=== PATIENT | female | born 1985 | race Caucasian/White ===

== ENCOUNTER 2020-12-12 14:15 | Outpatient (CLI) | payer MEDICAID, SELFPAY ==
--- NOTE | 2020-12-12 | MR_ITS ---
WS: [id number] MRI BRAIN WITHOUT CONTRAST HISTORY: WORSENING HEADACHES COMPARISON: None available. TECHNIQUE: Diffusion imaging, multiplanar T1, T2 and FLAIR imaging obtained. No evidence for acute infarct or hemorrhage. Dior-white matter differentiation is normal. There are f ew nonspecific T2 and FLAIR signal hyperintensities. No prior infarcts. No remote or acute infarcts are volume loss. Ventricles and extra-axial spaces are normal. No inferior displacement of cerebellar tonsils. The sella turcica and pituitary gland are unremarkabl e. Posterior fossa is also unremarkable. Dural venous sinuses and [place] demonstrate no abnormality on this unenhanced studies. Paranasal sinuses: Clear. Mastoid air cells: Normal. Calvarium and scalp: Intact. MR/MR head wo con* [id number] IMPRESSION: 1. Unremarkable MRI brain. 2. Negative sinuses.
== END 2020-12-12 14:16 | disposition home or self-care (01) ==
LOC: RADWPI 14:24
PROVIDERS: Visit Provider Nurse Practitioner Family
DX: R51.9 Headache, unspecified (principal)
CPT/HCPCS: 70551

== ENCOUNTER → 2021-12-23 15:50 | Outpatient (BNVA) | payer MEDICAID, SELFPAY | PROVIDERS: Visit Provider Surgery | DX: Z20.822 Contact with and (suspected) exposure to COVID-19 (principal) | CPT/HCPCS: 87635 ==

== ENCOUNTER 2021-12-30 10:01 | Day surgery (SDC) | payer MEDICAID, SELFPAY ==
[2021-12-28 12:45] VITALS: BMI 29.2
[2021-12-30] VITALS (12 sets, daily range): BP systolic 121–138; BP diastolic 60–91; PULSE 69–93; RESP 14–18; TEMP 36.1–36.8; O2SAT 96–100
[2021-12-30] MEDS: sodium chloride 0.9% 1,000 ML 30 ML IV (10:40)
[2021-12-30] MEDS: acetaminophen 1,000 MG/100 ML PIGGYBACK 400 MG IV (10:45)
[2021-12-30 10:54] LABS: Basophils # 0.1 10^3/uL (0.0-0.1); Basophils % 0.7 %; Eosinophils # 0.3 10^3/uL (0.0-0.8); Eosinophils % 2.7 %; Hematocrit 41.2 % (37.0-47.0); Lymphocytes # 2.1 10^3/uL (0.8-4.8); Lymphocytes % 19.6 %; Mean Corpuscular Hemoglobin 29.9 pg (28.0-34.0); Mean Platelet Volume 9.4 fL (7.4-10.4); Monocytes # 0.5 10^3/uL (0.2-0.9); Monocytes % 5.1 %; Neutrophils # 7.57 10^3/uL (1.8-7.7); Neutrophils % 71.5 %; Nucleated Red Blood Cells % 0 %; Platelet Count 363 10^3/cmm (130-400); Red Blood Count 4.68 10^6/uL (4.1-5.3); Red Cell Distribution Width 12.1 % (12.1-15.1); White Blood Count 10.6 10^3/uL (4.0-10.0)
[2021-12-30 11:02] LABS: OR HCG Qualitative Urine Negative (Negative)
--- NOTE | 2021-12-30 11:11 | ANES.PREANE2 ---
Pre-Anesthetic Assessment Height/Weight: Height 1.57 m Weight 72.575 kg Temp Pulse Resp BP Pulse Ox 98.2 F 70 14 133/60 99 12/30/21 10:18 12/30/21 10:18 12/30/21 10:18 12/30/21 10:18 12/30/21 10:18 Preop Diagnosis: Right upper quadrant abdominal pain Operation Date: 12/30/21 12:00 Proposed Procedures p Laparoscopic Cholecystectomy 68501/[id number](Not Applicable) - Dao Hunter MD Familial anesthetic complications: None Was Beta Darin taken within 24 hours: N/A Was Clonidine taken within 24 hours: N/A Last intake: Intake Last Liquid Date 12/29/21 Last Liquid Time 19:00 Last Solid Date 12/29/21 Last Solid Time 19:00 Social No alcohol and No tobacco Exam alert, oriented x 3, clear to auscultation bilaterally and regular rate & rhythm Airway Submandibular: within normal limits Cervical ROM: within normal limits Mallampati: Class I Dentition: full History/ROS No significant complaints Pulmonary None reported CV/HEM None reported None reported Hepatic None reported GI Symptomatic gall disease Metabolic None reported Musc/skel None reported Neuropsych None reported Anesthetic Plan ASA status: 2 Anesthesia: Anesthesia Evaluation and General Other: We discussed risk and benefits of general anesthesia including PONV, sore throat (sometimes severe), corneal abrasion, positioning and peripheral nerve injuries, life threatening allergic reaction, post operative ICU admission requiring prolonged intubation, stroke, heart attack, , and rare incidences of recall. Patient consents to proceed with general anesthesia. Risk of > 500 ml blood loss (7ml/kg in children): No Medications/Allergies Home Medications Medication Instructions Recorded Confirmed Last Taken Type pantoprazole 40 mg tablet,delayed 40 mg PO DAILY 12/14/21 12/30/21 12/29/21 History release (Protonix) topiramate 100 mg tablet (Topamax) 100 mg PO DAILY 12/14/21 12/30/21 12/29/21 History acetaminophen 325 mg tablet 1,000 mg PO QID PRN 12/28/21 12/30/21 2 Weeks Ago History (Tylenol) ~12/16/21 Allergies Allergy/AdvReac Type Severity Reaction Status Date / Time chlorhexidine Allergy Severe ALGY-Swell Verified 12/30/21 10:14 Lip/Tongue/Throat Current Medications Generic Name Dose Route Start Last Admin Trade Name Bin PRN Reason Stop Dose Admin Sodium Chloride 1,000 mls @ 30 mls/hr 12/30/21 10:15 12/30/21 10:40 Sodium Chloride 0.9% IV 12/31/21 10:14 30 mls/hr .Q24H MISSAEL Administration PFSH Anesthesia Family History Family/Other , Mother's side) Cancer Social History Smoking and tobacco status: never smoked Second hand smoke exposure: No Smoking risk assessment/counseling performed?: Yes Alcohol intake: never Marital status: Legally Female Reproductive History Date of last menstrual period: 12/28/21 Data Anesthesia : 12/30/21 10:35 12/30/21 10:35 Short CBC 12/30/21 Range/Units 10:35 WBC 10.6 H (4.0-10.0) 10^3/uL Hgb 14.0 (11.5-15.3) g/dL Hct 41.2 (37.0-47.0) % MCV 88.0 (81-99) fl Plt Count 363 (130-400) 10^3/cmm Neut % (Auto) 71.5 % Neut # (Auto) 7.57 (1.8-7.7) 10^3/uL Cardiac Studies: No Data to Display
[2021-12-30 11:17] LABS: Alanine Aminotransferase 13 U/L (0-33); Albumin Level 4.5 g/dL (3.5-5.2); Alkaline Phosphatase 69 IU/L (35-105); Anion Gap 12.8 (5-19); Aspartate Amino Transferase 14 U/L (0-32); Blood Urea Nitrogen 9 mg/dL (6-20); Calcium 8.9 mg/dL (8.5-10.5); Carbon Dioxide 25 mmol/L (22-29); Chloride 103 mmol/L (98-107); Globulin 2.3 g/dL (1.3-4.6); Glomerular Filtration Rate 95.8 mL/min (90-130); Glucose 89 mg/dL (65-115); Osmolality Calculated 282 mOsm/kg (285-295); Potassium 3.8 mmol/L (3.5-5.1); Sodium 137 mmol/L (136-145); Total Bilirubin 0.4 mg/dL (0.15-1.2); Total Protein 6.8 g/dL (6.6-8.7)
--- NOTE | 2021-12-30 11:40 | W.PM.OPSUD ---
Surgery/Procedure H&P Update DATE OF PROCEDURE: December 30, 2021 DATE H&P PERFORMED: 12/14/21 H&P UPDATE INFORMATION: I have reviewed H&P completed within last 30 days, I have examined patient prior to procedure and No changes to prior documentation PREOP DIAGNOSIS: Right upper quadrant abdominal pain PRIMARY INDICATION FOR PROCEDURE: THE SAME PLANNED PROCEDURE: Operation Date: 12/30/21 12:00 Proposed Procedures p Laparoscopic Cholecystectomy 12176/k82.9(Not Applicable) - Dao Hunter MD
[2021-12-30] MEDS: ampicillin-sulbactam 3 GM in sodium chloride 0.9% (plus) 50 ML IV (12:15)
[2021-12-30] MEDS: lidocaine 2% INJ 20 mL INJECTION (12:45)
--- NOTE | 2021-12-30 13:23 | PM.OP ---
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 Time-out was done verifying the patient's name/date of /planned procedure and destination after the procedure, all were in agreement. SCDs confirmed to be functioning, preoperative antibiotics administered per protocol, and beta brenton protocol was confirmed. Patient was appropriately secured to the table, footboard was applied to the OR table, before prep and drape anesthesia was asked to tilt the table back and forth to make sure that the patient is appropriately secured and she was. Prep and drape of the abdomen was done under the usual sterile technique, followed by that supraumbilical skin incision,skin incision was done by a 15 blade knife, and stay sutures were applied to the fascia and Minor trocar technique was used to enter the abdominal without injuring any abdominal viscera, started by low flow gas insufflation followed by a high flow, started with a 10 mm laparoscope and under direct vision there was no evidence of any injuries, the scope then switched to a 30? ,10 millimeter scope and under direct visualization 5 millimeter trocar was inserted in the epigastric region followed by two 5 mm trocars were inserted in the right upper quadrant that was done after injection of local lidocaine 2% at all incision sites. Gallbladder showed chronic cholecystitis and Fatty Liver Patient was then positioned in the head up and tilted to the left. Ratcheted forceps were introduced into the lateral most 5mm port and was applied unto the fundus of the gallbladder cephalad and using Bullet forceps the infundibulum of the gallbladder was retracted laterally. Using [place] forceps then L-hook cautery to dissect the peritoneum overlying the Calot's triangle which was then opened medially and laterally until the cystic duct and the cystic artery were skeletonized. Dissection was carried along the body of the gallbladder and after ensuring critical view of safety was identfied. Cystic duct and cystic artery where seen connected to the gallbladder. Clips were applied on the cystic duct towards the common bile duct 1 towards the gallbladder then divided is in sharp scissors, 2 clips were then applied onto the cystic artery and 1 towards the gallbladder and divided by sharp scissors. Dissection was then carried along of the gallbladder from the gallbladder fossa using cautery as well as sharp dissection with heat energy. The gallbladder then was dissected out from the gallbladder fossa totally , cholecystectomy was then achieved and was placed in an Endo Catch bag and then retrieved from the Minor trocar site under direct visualization using a 5 mm 30? scope through the epigastric trocar, specimen was then passed to the circulating nurse to go for permanent pathology,irrigation and hemostasis was done to the gallbladder fossa after hemostasis was secured and finalized by the pieces of Surgicel placed at the gallbladder fossa final survey laparoscopy was done that showed no injuries or bleeding Suction irrigation was obtained. The supraumbilical fascial defect was then closed using interrupted number one PDS sutures using a fascial closure device ;Herbert Quintero under direct visualization following that Gas was allowed to deflate,Trocars were then taken out under direct vision there was no evidence of bleeding. Specimen was passed to the circulating nurse for permanent pathology. No drains were placed and the supraumbilical incision as well as all trocar sites were closed by 3/0 Vicryl followed by 4-0 Monocryl to approximate the skin edges of the incisions , dressing was applied in the form of surical glue and the patient patient got extubated and was taken to recovery area in a stable condition. Count of sponges,needles and instruments were completed at the end of the procedure I was present for the whole entire procedure.
[2021-12-30] MEDS: diphenhydrAMINE 50 mg/mL SDV 1mL 25 MG IVP (14:26)
[2021-12-30] MEDS: metoclopramide 5 mg/mL SDV 2 mL 10 MG IVP (14:44)
[2021-12-30] MEDS: dexamethasone 4 mg/mL INJ IVP (15:34)
[2021-12-30] MEDS: scopolamine 1.5 Patch 1 PATCH TRANSDERMA (15:34)
[2021-12-30] MEDS: promethazine 25 mg/mL SDV 1 mL IM (15:57)
--- NOTE | 2021-12-30 16:12 | ANE.PACU2 ---
Inpatient post-anesthesia follow up: Airway intact: Yes Vital signs: Temperature 97.0 F Pulse Rate 78 Respiratory Rate 16 Blood Pressure 136/72 Pulse Oximetry 99 Oxygen Delivery Me thod Room Air Oxygen Flow Rate 6 Fraction of Inspir ed Oxygen Hydration adequate: Yes Nausea and vomiting: Yes Pain level: 4 Mental status: Baseline Additional Comments: PONV after dexamethasone and ondansetron intraop. Post op received diphenhydramine, dexamethasone, promethazine IM, metoclopramide, and scopalamine
== END 2021-12-30 16:25 | disposition home or self-care (01) ==
PROVIDERS: Anesthesiology; PCP Nurse Practitioner Family; Visit Provider Surgery
PROC: 0FT44ZZ Resection of Gallbladder, Percutaneous Endoscopic Approach (ICD-10-PCS; CPT 47562; principal; 2021-12-30 12:00)
DX: K81.1 Chronic cholecystitis (principal)
CPT/HCPCS: 47562; 80053; 84703; 85025; 88304; J0295; J1100; J1170; J1200; J2405; J2550; J2704; J2710; J2765; J3010; J3490; J7030

== ENCOUNTER → 2022-01-11 14:59 | Outpatient (BNVA) | payer MEDICAID, SELFPAY | PROVIDERS: PCP Nurse Practitioner Family; Visit Provider Surgery | DX: Z98.890 Other specified postprocedural states (principal); Z90.49 Acquired absence of other specified parts of digestive tract ==

== ENCOUNTER → 2023-02-23 11:05 | Outpatient (BNVA) | payer BC, MEDICAID, SELFPAY | PROVIDERS: PCP Nurse Practitioner Family; Visit Provider Internal Medicine | DX: L50.9 Urticaria, unspecified (principal); R76.8 Other specified abnormal immunological findings in serum; R21 Rash and other nonspecific skin eruption; Z90.49 Acquired absence of other specified parts of digestive tract | CPT/HCPCS: 36415; 80053; 81003; 82784; 83516; 83735; 84443; 84550; 85025; 85651; 86140; 86160; 86162; 86200; 86235; 86255; 86376; 86431; 86618; 86666; 86704; 86757; 86803; 87340 ==

== ENCOUNTER → 2023-03-25 11:00 | Outpatient (BNVA) | payer BC, SELFPAY | PROVIDERS: PCP Nurse Practitioner Family; Referring Provider Internal Medicine; Visit Provider Nurse Practitioner Family | DX: L71.8 Other rosacea (principal); L81.4 Other melanin hyperpigmentation; D22.5 Melanocytic nevi of trunk; Z71.89 Other specified counseling | CPT/HCPCS: 99204 ==

== ENCOUNTER 2025-01-25 08:16 | Outpatient (CLI) | payer OTHER, SELFPAY ==
--- NOTE | 2025-01-25 08:30 | CT_ITS ---
WS: [id number] CT ABDOMEN AND PELVIS NONCONTRAST HISTORY: ABDOMINAL PAIN TECHNIQUE: Imaging performed through the abdomen and pelvis. Coronal and sagittal reformats are submitted. All CT scans at [facility] use at least one of these dose optimization techniques: automated exposure control; mA and/or kV adjustment per patient size (includes targeted exams where dose is matched to clinical indication); or iterative reconstruction. DLP: 383.88 mGy.cm COMPARISON: None available. Lower thorax: Lung bases are clear. Visualized heart is normal. Small hiatal hernia. Liver: Normal size liver. No mass or bile duct dilatation. Gallbladder: Prior cholecystectomy. Pancreas: Normal size and attenuation. Normal pancreatic duct. No pancreatitis or mass. Spleen: Normal. Adrenal glands: Normal RIGHT adrenal gland. There is a small 12 mm nodule in the LEFT upper abdomen closely associated with the stomach and the LEFT adrenal gland. The exact etiology is difficult to determine. Right kidney: Normal size kidney with no mass or hydronephrosis. Left kidney: Normal size kidney with no mass or hydronephrosis. Aorta: Normal abdominal aorta, no aneurysm or atherosclerosis. No free fluid, intraperitoneal air or significant lymphadenopathy. GI tract: Normally distended stomach. No small bowel obstruction. Normal appendix. There is mild submucosal fat in the ascending and transverse colon which is typically a chronic finding. No acute colitis. Abdominal wall: Mild diastases rectus of the abdominal wall at the umbilical site. Pelvis: Uterus is enlarged and lobular suggesting fibroids. Both ovaries are identified and contains small follicles. There is no free fluid or adenopathy in the pelvis. Osseous structures: Unremarkable. CT/CT abdomen pelvis wo con [id number] IMPRESSION: 1. No GI tract obstruction. 2. There is a focal well-circumscribed 12 mm nodule in the LEFT upper abdomen inseparable from the posterior stomach and LEFT adrenal gland. This could poten tially be a small gastric tumor such as a GIST tumor. Small adrenal adenoma wit hin the differential. Recommend CT in 3 months with IV contrast to evaluate for any interval change. 3. Prior cholecystectomy. 4. Enlarged uterus, lobular contour suggesting fibroids.
== END 2025-01-25 08:17 | disposition home or self-care (01) ==
PROVIDERS: PCP Nurse Practitioner Family; Visit Provider Nurse Practitioner Family
DX: R10.9 Unspecified abdominal pain (principal); R11.2 Nausea with vomiting, unspecified; R14.0 Abdominal distension (gaseous); R93.5 Abnormal findings on diagnostic imaging of other abdominal regions, including retroperitoneum; Z90.49 Acquired absence of other specified parts of digestive tract; N85.2 Hypertrophy of uterus; K44.9 Diaphragmatic hernia without obstruction or gangrene; R93.89 Abnormal findings on diagnostic imaging of other specified body structures; M62.08 Separation of muscle (nontraumatic), other site
CPT/HCPCS: 74176

== ENCOUNTER 2025-03-08 14:03 | Outpatient (CLI) | payer OTHER, SELFPAY ==
--- NOTE | 2025-03-08 14:12 | US_ITS ---
WS: [id number] US pelvic complete* [id number] HISTORY: UNSPECIFIED ABD PAIN/FLANK PAIN COMPARISON: None available. Uterus: 10.2 cm x 5.7 cm x 5.4 cm. Enlarged anteverted uterus. Uterus is heterogeneous and slightly lobulated. There is shadowing within the fundal portion of the myometrium suggesting fibroid. Fibroid measures 4.1 x 4.2 x 2.9 cm. Endometrium: 0.8 cm. Normal. Right ovary: 2.5 cm x 2.2 cm x 2.6 cm. Normal size and vascularity, no cystic or solid masses. Left ovary: Not visualized. No free fluid in the cul-de-sac. US/US pelvic complete* [id number] IMPRESSION: 1. Enlarged uterus with myometrial heterogeneity and a fibroid towards the fun dus. 2. Normal endometrium. 3. LEFT ovary is not identified.
--- NOTE | 2025-03-08 14:12 | MR_ITS ---
WS: [id number] MRI ABDOMEN WITH AND WITHOUT CONTRAST. COMPARISON: CT 01/25/2025 Multiplanar, multisequence imaging is performed with and without contrast. MultiHance 19 mL. Lung bases are clear. Normal size heart. No pleural effusions. Reidentified is a small mass closely associated with the posterior surface of the stomach measuring 11 x 16 mm. Mass is very close associated the stomach, LEFT adrenal gland and the kidney. There is limited enhancement. No adjacent inflammation or edema. Subcapsular cyst RIGHT hepatic lobe measures 5 mm. No enhancing liver lesions. Normal size spleen. Prior cholecystectomy. No separate adrenal mass identified. Normal appearance of the pancreas. Normal aorta. No adenopathy or ascites. MR/MR abdomen wo/w con* [id number] IMPRESSION: 1. No interval change of the 11 x 16 mm mass in the LEFT upper abdomen closely associated with the posterior stomach. Mass is also very closely associated wi th the LEFT adrenal gland and superior kidney. There is slight enhancement. Dif ferential continues to be a GIST tumor or adrenal adenoma. Recommend continued serial follow-up imaging evaluations. This can be followed by CT or MRI. Mass w as better visualized on the CT. 2. RIGHT hepatic cyst. 3. Prior cholecystectomy.
== END 2025-03-08 14:04 | disposition home or self-care (01) ==
PROVIDERS: PCP Nurse Practitioner Family; Visit Provider Nurse Practitioner Family
DX: C49.A0 Gastrointestinal stromal tumor, unspecified site (principal); R10.9 Unspecified abdominal pain
CPT/HCPCS: 74183; 76856

== ENCOUNTER 2025-03-18 07:02 | Outpatient (CLI) | payer OTHER, SELFPAY ==
--- NOTE | 2025-03-18 07:16 | MR_ITS ---
WS: [id number] MRI CERVICAL SPINE NONCONTRAST HISTORY: WEAKNES OF UPPER/LOWER EXTREMITIES COMPARISON: None available. Technique: Multiplanar, multisequence noncontrast imaging of the cervical spine. Straightening of the cervical lordosis. Slight reversal centered at C5-6. Signal within the cervical cord is normal. Visualized posterior fossa is unremarkable. Advanced degenerative disc disease with osteophytic ridging most significant at C5, C6 and C7. Craniocervical junction, C1 and C2 relationship, odontoid process and soft tissues are normal. C2-C3: Normal. C3-C4: Normal. C4-C5: Mild diffuse annular disc bulging with mild osteophytic ridging and facet arthritis. No stenosis. C5-C6: Diffuse annular disc bulging, osteophytic ridging and facet arthritis. Disc osteophyte encroachment upon the ventral thecal sac with mild deformity. Mild to moderate central and bilateral foraminal stenosis. C6-C7: Diffuse annular disc bulging with a broad-based central disc protrusion contacting the cervical cord. Osteophytic ridging and moderate facet arthritis. Moderate central and mild bilateral foraminal stenosis. C7-T1: Normal. Small bilateral cervical chain lymph nodes. MR/MR cervical spin wo con* [id number] IMPRESSION: 1. Moderate degenerative disc disease and spondylosis, most significant at C5- 6 and C6-7. 2. C5-6: Mild to moderate central with bilateral foraminal stenosis due to dis c and osteophyte and facet arthritis. Mild disc contact on the ventral cord. 3. C6-7: Moderate central with mild bilateral foraminal stenosis due to disc o steophyte disease. There is a broad-based central disc protrusion contacting th e ventral cord.
--- NOTE | 2025-03-18 07:17 | MR_ITS ---
WS: [id number] MRI BRAIN WITH AND WITHOUT CONTRAST HISTORY: WEAKNES OF UPPER/LOWER EXTREMITIES COMPARISON: 12/12/2020 TECHNIQUE: Multiplanar imaging performed through the brain with MultiHance 17 ml's IV. No acute infarcts are seen. Dior-white matter differentiation is well preserved. There are a few scattered T2 and FLAIR signal hyperintensities in the subcortical white matter which are unchanged. Normal hippocampal formations. No susceptibility artifacts or prior lacunar infarcts. Ventricles and extra-axial spaces are normal. Clivus and pituitary gland are normal. Visualized posterior fossa and brainstem are also normal. Postcontrast images are negative for masses or vascular malformations. Dural venous sinuses are normal. Paranasal sinuses: Small mucous retention cyst in the floor of the RIGHT maxillary sinus. Mastoid air cells: Normal. Calvarium and scalp: Normal. MR/MR head wo/w con [id number] IMPRESSION: 1. No acute infarct, hemorrhage or mass. 2. Minimal small vessel type changes similar to 2020. 3. No posterior fossa abnormality.
== END 2025-03-18 07:03 | disposition home or self-care (01) ==
PROVIDERS: PCP Nurse Practitioner Family; Visit Provider Family Medicine
DX: M50.322 Other cervical disc degeneration at C5-C6 level (principal); M48.02 Spinal stenosis, cervical region; M50.323 Other cervical disc degeneration at C6-C7 level; M25.78 Osteophyte, vertebrae; M47.812 Spondylosis without myelopathy or radiculopathy, cervical region; R25.1 Tremor, unspecified; M50.223 Other cervical disc displacement at C6-C7 level
CPT/HCPCS: 70553; 72141